=== PATIENT | female | born 1995 | race Two or more races ===

== ENCOUNTER 2019-03-28 17:56 | Emergency (ER) | payer SELFPAY ==
[~2019-03-28] VITALS: Ht 157.5 cm; Wt 78.9 kg
[2019-03-28 20:29] LABS: Urine Bacteria FEW /hpf (None Seen); Urine Blood Negative /uL (Negative); Urine Specific Gravity 1.011 (1.001-1.035); Urine WBC 47 /hpf (0 - 5)
[2019-03-28 21:23] VITALS: BP 115/70
== END 2019-03-28 22:13 | disposition home or self-care (01) ==
LOC: ER 18:15
DX: O23.41 Unspecified infection of urinary tract in pregnancy, first trimester (principal); Z91.018 Allergy to other foods; Z3A.09 9 weeks gestation of pregnancy
CPT/HCPCS: 36415; 81001; 84702

== ENCOUNTER 2019-05-29 16:00 | Emergency (ER) | payer SELFPAY ==
[~2019-05-29] VITALS: Ht 157.5 cm; Wt 78.5 kg
[2019-05-29 16:05] VITALS: BP 114/61
[2019-05-29 16:26] LABS: Basophils # (auto) 0 uL; Basophils % (auto) 0.2 % (0.0-2.0); Eosinophils # (auto) 0.1 uL; Eosinophils % (auto) 0.5 % (0.0-7.0); Hematocrit 36.7 % (36.0-46.0); Lymphocytes % (auto) 19.1 % (10.0-50.0); Mean Corpuscular Hemoglobin 27.7 pg (28.0-32.0); Mean Corpuscular Hgb Conc. 32.8 g/dL (32.0-36.0); Mean Corpuscular Volume 84.3 fL (80.0-100.0); Monocytes # (auto) 0.7 uL; Monocytes % (auto) 6.9 % (0.0-12.0); Neutrophils # (auto) 7.7 uL; Neutrophils % (auto) 73.3 % (37.0-80.0); Platelet Count (auto) 295 10^3/uL (140-450); Red Blood Cells 4.35 10^6/uL (4.0-5.20); Red Cell Distribution Width 13.3 % (11.8-14.3); White Blood Cell 10.5 10^3/uL (4.4-10.8)
[2019-05-29 16:46] LABS: BUN/Creatinine Ratio 15.4; Calcium 9.1 mg/dL (8.5-10.1); Potassium 3.8 mmol/L (3.5-5.1)
== END 2019-05-29 17:42 | disposition home or self-care (01) ==
LOC: ER 16:03
DX: O26.892 Other specified pregnancy related conditions, second trimester (principal); A08.4 Viral intestinal infection, unspecified; Z3A.18 18 weeks gestation of pregnancy; Z91.018 Allergy to other foods
CPT/HCPCS: 36415; 76805; 80048; 84702; 85025